=== PATIENT | male | born 1965 ===

== ENCOUNTER 2024-06-14 11:15 | Emergency (ER) | payer SELFPAY ==
[2024-06-14] MEDS: Nitroglycerin 0.4 MG Tab.SL SL PRN (11:36)
[2024-06-14] MEDS: Aspirin 81 MG Tab.Chew PO ONE (11:40)
[2024-06-14 12:16] LABS: BASOPHILS ABSOLUTE AUTO 0.03 K/uL (0.02-0.10); BASOPHILS PERCENT AUTO 0.2 % (0.0-0.5); EOSINOPHILS ABSOLUTE AUTO 0.02 K/uL (0.04-0.40); EOSINOPHILS PERCENT AUTO 0.1 % (1.0-5.0); HEMATOCRIT 49.9 % (40.0-54.0); LYMPHOCYTES ABSOLUTE AUTO 2.09 K/uL (1.50-4.00); LYMPHOCYTES PERCENT AUTO 14.7 % (20.0-40.0); MEAN CORPUSCULAR HEMOGLOBIN 31.3 pg (27.0-32.0); MEAN CORPUSCULAR HGB CONC 34.1 g/dL (31.0-35.0); MEAN CORPUSCULAR VOLUME 92 fL (76-96); MONOCYTES ABSOLUTE AUTO 1.81 K/uL (0.20-0.80); MONOCYTES PERCENT AUTO 12.7 % (3.0-10.0); NEUTROPHILS ABSOLUTE AUTO 10.25 K/uL (2.00-7.50); NEUTROPHILS PERCENT AUTO 72.3 % (45.0-70.0); PLATELET COUNT,PLT 315 K/uL (150-400); RED BLOOD CELL COUNT 5.44 M/uL (4.50-6.50); RED CELL DISTRIBUTION WIDTH 13.5 % (11.0-16.0); WHITE BLOOD CELL COUNT,WBC 14.2 K/uL (4.0-11.0)
[2024-06-14] MEDS ORDERED: Naloxone 2 MG/2 ML Syringe IVPUSH PRN (12:24)
[2024-06-14] MEDS: fentaNYL 100 MCG/2 ML SDV IVPUSH PRN (12:33)
[2024-06-14 12:35] LABS: PROTHROMBIN TIME 10.4 sec (9.0-11.5)
[2024-06-14 12:36] LABS: ALBUMIN 3.3 g/dL (3.4-5.0); ANION GAP 13.7 mmol/L (5.0-15.0); BILIRUBIN TOTAL 0.7 mg/dL (0.0-1.0); BUN/CREATININE RATIO 15.3 (6-25); CALCIUM 9.1 mg/dL (8.5-10.1); CARBON DIOXIDE,CO2 30.1 mmol/L (21.0-32.0); CREATININE 0.98 mg/dL (0.70-1.30); EST CRCL DRUG DOSING (CG) 81.16 mL/min; POTASSIUM,K 3.8 mmol/L (3.5-5.1); PROTEIN TOTAL,TP 6.6 g/dL (6.4-8.2)
[2024-06-14 12:41] LABS: MAGNESIUM 2.1 mg/dL (1.8-2.4)
[2024-06-14 13:06] LABS: TROPONIN I HIGH SENSITIVITY > 25000.0 pg/ml (<=60.4)
[2024-06-14] MEDS ORDERED: Heparin Sodium/D5W 25,000 UNITS/500 ML BAG IV SCH (13:15)
[2024-06-14] MEDS: Heparin Sodium 5,000 Units/ML Vial IVPUSH ONE (13:16)
[2024-06-14] MEDS: Losartan 25 MG Tab PO SCH (13:40)
[2024-06-14] MEDS: Metoprolol Tartrate 25 MG Tab PO ONE (13:40)
[2024-06-14] MEDS: Clopidogrel 75 MG Tab PO ONE (13:40)
[2024-06-14] MEDS ORDERED: Nitroglycerin 0.4 MG Tab.SL ONE ×2 (13:46→14:00)
[2024-06-14] MEDS ORDERED: Clopidogrel 75 MG Tab ONE ×2 (13:46→14:00)
[2024-06-14] MEDS ORDERED: Metoprolol Tartrate 25 MG Tab ONE ×2 (13:47→14:00)
[2024-06-14] MEDS ORDERED: Losartan 25 MG Tab ONE ×2 (13:56→14:00)
== END 2024-06-14 14:15 | disposition left against medical advice (07) ==
LOC: LB.ED 11:15
DX: I21.4 Non-ST elevation (NSTEMI) myocardial infarction (principal); Z88.5 Allergy status to narcotic agent; Z79.899 Other long term (current) drug therapy
CPT/HCPCS: 36415; 71045; 80053; 83735; 84484; 85025; 85379; 85610; 85730; 93005; 93010; 96374; 96375; 99285; 99285-25; A9270-GY; J1644; J3010